=== PATIENT | male | born 2005 | race Caucasian/White ===

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

== ENCOUNTER 2024-03-15 11:05 | Emergency (ER) | payer BC, SELFPAY ==
[2024-03-15 11:15] VITALS: BP 140/82; PULSE 97; RESP 21; TEMP 36.6; O2SAT 100; BMI 36.9
--- NOTE | 2024-03-15 11:19 | EXP.UTC ---
Discharge Plan Disposition Patient Disposition: Home, Self-Care Condition: Good Prescriptions Prescriptions: New cephalexin 500 mg capsule 500 mg PO QID 10 Days Qty: 40 0RF mupirocin 2 % ointment 1 applic topical TID 7 Days Qty: 15 0RF No Action desvenlafaxine succinate 50 mg tablet extended release 24 hr 50 mg PO DAILY Qty: 90 0RF trazodone 100 mg tablet 100 mg PO QHS Qty: 30 1RF dextroamphetamine-amphetamine [Adderall XR] 10 mg capsule,extended release 24hr 10 mg PO DAILY Qty: 30 0RF Referrals Follow up/Referrals: Stephan Crespo MD [Primary Care Provider] - See instructions Activity Restrictions/Add. Instructions Additional Instructions/Restrictions: Keep the wounds clean and dry. Watch the wounds for signs of worsening infection, such as worsening redness, swelling, drainage, fever. etc. Apply the topical antibiotic ointment (mupirocin) as directed. Follow up with your regular doctor. GO TO THE ER FOR ANY WORSENING SYMPTOMS OR CONCERNS. Clinical Impressions Clinical Impression: Impetigo, Bug bite with infection Instructions Patient Instructions: DI for Impetigo, Mupirocin Print Language Print Language: Finnish Discharge ED Provider: Isak Mccabe [facility] [place] General Stated complaint: rash right arm Time Seen by Provider: 03/15/24 11:19 History of Present Illness Provider Complaint: He states that for the past 1 week he has had 3 crusted lesions on his right arm. Related Data Previous Rx's ?Medication ?Instructions ?Recorded desvenlafaxine succinate 50 mg 50 mg PO DAILY Depression #90 tabs 12/16/23 tablet,extended release 24 hr trazodone 100 mg tablet 100 mg PO QHS #30 tabs 12/16/23 dextroamphetamine-amphetamine ER 10 mg PO DAILY adhd #30 caps 02/16/24 10 mg 24hr capsule,extend release (Adderall XR) cephalexin 500 mg capsule 500 mg PO QID 10 days #40 caps 03/15/24 mupirocin 2 % topical ointment 1 applic topical TID 7 days #15 03/15/24 grams Allergies Allergy/AdvReac Type Severity Reaction Status Date / Time No Known Allergies Allergy Verified 01/06/24 15:04 [facility] Disclaimer: The information contained in this section may have been updated after the patient was seen, as this information can be updated by other users. Medical History (Updated 03/15/24 @ 11:55 by Isak Mccabe APRN) Insomnia Attention deficit disorder Bronchitis Viral syndrome Sinusitis URI (upper respiratory infection) Major depressive disorder Contusion of left lower leg Encounter for laboratory testing for COVID-19 virus Cough Sprain of right hand Sprain and strain of wrist Viral syndrome Cerumen impaction Epistaxis Headache Right upper quadrant abdominal pain Pharyngitis Bronchitis Knee pain Knee sprain Sprain of foot, left Swollen lymph nodes Otitis media Viral upper respiratory illness Surgical History (Updated 07/07/23 @ 15:44 by Garcia Ferrer) No significant past surgical history Family History (Updated 07/07/23 @ 15:44 by Garcia Ferrer) Other No significant family history Social History Smoking Status: Current every day smoker second hand exposure: No alcohol intake: never substance use type: denies use current occupational status: other Travel in the last 8 weeks: None household members: family housing: house number of children: 0 current occupational exposures/hazards: No caffeine: No ROS Obtained: Yes All systems reviewed & no additional complaints except as documented Constitutional Constitutional: Denies chills and Denies fever(s) Eyes Eyes: Denies eye discharge ENT Ears, Nose, Mouth, and Throat: Denies dizziness, Denies otalgia and Denies sore throat Cardiovascular Cardiovascular: Denies chest pain Respiratory Respiratory: Denies shortness of breath, Denies chest congestion, Denies cough, Denies stridor and Denies wheezing Gastrointestinal Gastrointestingal: Denies nausea or vomiting Musculoskeletal Musculoskeletal: Reports system reviewed and no additional complaints, except as documented and Denies arthralgias Integumentary/Breasts Skin/Breast: Reports as per HPI Neurologic Neurologic: Denies dizziness and Denies paresthesias Allergic/Immunologic Allergic/Immunologic: Denies wheezing Physical Exam General General appearance: alert and in no apparent distress Head Head exam: atraumatic, normocephalic and normal inspection Eye Eye exam: Present normal appearance, PERRL and EOMI ENT ENT exam: Present normal exam, normal oropharynx, mucous membranes moist, TM's normal bilaterally and normal external ear exam Neck Neck exam: Present normal inspection, full ROM and trachea midline; Absent meningismus or lymphadenopathy Chest Chest inspection: Present normal inspection and symmetric chest wall rise; Absent tenderness Respiratory Respiratory exam: Present normal lung sounds bilaterally; Absent respiratory distress Cardiovascular Cardiovascular exam: Present regular rate and normal rhythm; Absent JVD Abdominal Exam Abdominal exam: Present soft and normal bowel sounds; Absent distention, tenderness or guarding Extremities Exam Extremities exam: Present normal inspection, full ROM and normal capillary refill; Absent calf tenderness Back Exam Back exam: Present normal inspection; Absent tenderness Neurological Exam Neurological exam: Present alert and oriented X3 Psychiatric Psychiatric exam: Present normal affect and normal mood Skin Skin exam: Present other (there are 3 crusted lesions on his right forearm that measure 1 cm diameter each. no drainage noted.) Lymphatic Lymphatic Findings: no adenopathy Medical Decision Making Medical Records Medical records reviewed: No I reviewed the patient's medical records. Rufus Inquiry Pt receiving controlled substance: No
[2024-03-15 11:30] VITALS: BP 140/82; PULSE 97; RESP 21; TEMP 36.6; O2SAT 100
== END 2024-03-15 11:33 | disposition home or self-care (01) ==
PROVIDERS: Emergency Provider Nurse Practitioner Family; PCP Family Medicine
DX: L01.00 Impetigo, unspecified (principal)
CPT/HCPCS: 99212; 99214; G0463